=== PATIENT | female | born 1980 | race Caucasian/White ===

== ENCOUNTER 2017-09-17 04:05 | Emergency (ER) | payer MEDICAID ==
[~2017-09-17] VITALS: Ht 172.7 cm; Wt 68.0 kg
[2017-09-17 04:14] VITALS: Ht 172.7 cm; Wt 68.0 kg
[2017-09-17 07:24] VITALS: BP 142/96
== END 2017-09-17 07:24 | disposition home or self-care (01) ==
LOC: ED 04:05
DX: B34.9 Viral infection, unspecified (principal); F17.200 Nicotine dependence, unspecified, uncomplicated
CPT/HCPCS: J1885; J7613; J7644; Q0162

== ENCOUNTER 2017-09-17 20:17 | Emergency (ER) | payer MEDICAID ==
[~2017-09-17] VITALS: Ht 172.7 cm; Wt 69.4 kg
[2017-09-17 20:39] VITALS: Ht 172.7 cm; Wt 69.4 kg
[2017-09-17 22:29] LABS: BASOPHIL % 0.1 % (0-2); CALCIUM 8.3 mg/dL (8.5-10.1); CARBON DIOXIDE 25.9 mmol/L (21-32); CHLORIDE SERUM 102 mmol/L (98-107); GFR1 > 60 mL/min; GLUCOSE SERUM 97 mg/dL (74-106); PLATELET COUNT 202 x10^3mcL (130-400); POTASSIUM SERUM 3.2 mmol/L (3.5-5.1); RED CELL DISTRIBUTION WIDTH 13.9 % (11.5-14.5); SODIUM SERUM 139 mmol/L (136-145)
[2017-09-17 22:33] LABS: ALBUMIN 3.6 g/dL (3.4-5.0); ALKALINE PHOSPHATASE 79 U/L (46-116); ALT/SGPT 58 U/L (14-59); AST/SGOT 43 U/L (15-37); BILIRUBIN TOTAL 0.3 mg/dL (0.20-1.00); LIPASE 82 IU/L (73-393); TOTAL PROTEIN, SERUM 7.4 g/dL (6.4-8.2)
[2017-09-17 22:36] LABS: AMPHETAMINE QUAL UR POSITIVE (NEG <=1000)
[2017-09-18 02:21] VITALS: BP 152/90
== END 2017-09-18 02:21 | disposition left against medical advice (07) ==
LOC: ED 20:17
PROVIDERS: Emergency Medicine
DX: R07.89 Other chest pain (principal); R10.11 Right upper quadrant pain; R05 Cough; F17.210 Nicotine dependence, cigarettes, uncomplicated
CPT/HCPCS: 36415; 85378; 87804; J2270; Q9967